=== PATIENT | female | born 1995 | race Caucasian/White ===

== ENCOUNTER 2017-07-02 07:06 | Emergency (ER) | payer OTHER ==
[~2017-07-02] VITALS: Ht 170.2 cm; Wt 68.0 kg
[~2017-07-02 07:06] MED LIST: CEPH500 PO; IBUP800 PO; IRON150C PO; Macrobid 100 M100 MG PO; NITR100CA PO; NYSTATIN1 EAC1 TOP; OXYACE5T PO; Zithromax250 MG PO
[2017-07-02] MEDS ORDERED: Flagyl250 MG PO (07:44)
[2017-07-02] MEDS ORDERED: PAROEX473 ML MM (07:44)
== END 2017-07-02 07:55 | disposition home or self-care (01) ==
LOC: ER 07:06
DX: K04.7 Periapical abscess without sinus (principal); L03.211 Cellulitis of face; Z88.0 Allergy status to penicillin; Z91.040 Latex allergy status; Z91.018 Allergy to other foods; Z88.8 Allergy status to other drugs, medicaments and biological substances; Z79.899 Other long term (current) drug therapy
CPT/HCPCS: 99282